=== PATIENT | male | born 1960 | race Caucasian/White ===

== ENCOUNTER 2024-07-31 11:06 | Outpatient (REF) | payer MEDICAID, SELFPAY ==
[2024-07-31 14:17] LABS: MANUAL DIFF FLAG NO
[2024-07-31 14:29] LABS: Basophils Absolute Auto 0.1 X10*3/uL (0.0-0.2); Basophils Percent Auto 0.7 % (0-2); Eosinophils Absolute Auto 0.3 X10*3/uL (0.0-0.4); Eosinophils Percent Auto 2.7 % (0-4); Hematocrit 45.1 % (42.0-52.0); Hemoglobin 14.6 g/dl (14.0-18.0); Imm Gran Abs Auto 0.04 X10*3/uL (0.00-0.03); Imm Gran Pct Auto 0.3 % (0.0-0.4); Lymphocytes Absolute Auto 1.1 X10*3/uL (1.2-4.9); Lymphocytes Percent Auto 9.1 % (20-40); Mean Corpuscular HGB Conc 32.4 g/dl (31.0-36.0); Mean Corpuscular Hemoglobin 29.7 pg (27.0-33.0); Mean Corpuscular Volume 91.9 fL (80.0-98.0); Mean Platelet Volume 10.6 fL (9.4-12.4); Monocytes Absolute Auto 0.8 X10*3/uL (0.1-1.2); Monocytes Percent Auto 6.7 % (2-11); Neutrophils Absolute Auto 9.8 x10*3/uL (2.0-8.3); Neutrophils Percent Auto 80.5 % (45-73); Platelet Count 408 X10*3/uL (160-400); Red Blood Count 4.91 X10*6/uL (4.60-5.80); Red Cell Distribution Width 15.8 % (11.0-16.0); White Blood Count 12.1 X10*3/uL (4.8-10.8)
[2024-07-31 14:54] LABS: Anion Gap 16 (12-20); Blood Urea Nitrogen 32 mg/dL (9-16); Calcium 9.4 mg/dL (8.4-10.2); Carbon Dioxide 23 mmol/L (22-29); Chloride 103 mmol/L (96-108); Estimated Glomerular Filt Rate 37; Glucose Random 70 mg/dL (60-115); Potassium 4.8 mmol/L (3.3-5.1); Sodium 137 mmol/L (135-145)
== END 2024-07-31 11:07 | disposition home or self-care (01) ==
LOC: HO.CHCLDS 11:06
PROVIDERS: Visit Provider Internal Medicine
DX: J18.9 Pneumonia, unspecified organism (principal)
CPT/HCPCS: 36415; 80048; 85025

== ENCOUNTER 2024-08-16 11:16 | Outpatient (AMB) | payer MEDICAID, SELFPAY ==
[2024-08-16 11:18] VITALS: BP 148/74; PULSE 91; O2SAT 95; BMI 29.5
--- NOTE | 2024-08-16 11:18 | HO.NEPHOV_ITS ---
Vital Signs 08/16/24 11:18 Height 5 ft 6 in Weight 183 lb BMI 29.5 BP 148/74 H Blood Pressure Location Lt brachial Position Sitting Pulse 91 Pulse Source Pulse Oximeter Pulse Oximetry (%) 95 Oxygen Delivery Method Room Air Intake Visit Reasons: ENP: CKD STG 3B/ Conf Voice Coach Required: No Accompanied by: girlfriend Allergies No Known Allergies Allergy (Verified 08/16/24 11:22) Medication List - Last Reconciled 08/16/24 by Daniel Mathew MD acetaminophen ER 650 mg PO Q8H albuterol 90 mcg/actuation mcg inhalation amlodipine 10 mg PO DAILY fluticasone furoate-vilanterol 100-25 mcg/dose (Breo Ellipta) 1 ea inhalation DAILY gabapentin 100 mg PO TID guaifenesin ER 1,200 mg PO BID ipratropium-albuterol 20-100 mcg/actuation (Combivent Respimat) 1 puff inhalation QID lisinopril 30 mg PO DAILY tiotropium bromide (Spiriva with HandiHaler) 1 cap inhalation DAILY HPI Comments Details: Abisai is a 64-year-old man with a history of hypertension referred for CKD. He has a history of meatal stenosis status post dilatation. Recently was hospitalized for pneumonia and treated with antibiotics. He was found to have chronic kidney disease serum creatinine was around 1.71.8 mg/dL. He has been referred for further evaluation of the same. Renal ultrasonogram and has been ordered but not yet done. Today he has no specific urinary complaints. No dysuria urgency increased frequency. He has low back pain he has been taking ibuprofen 600 mg 2 to 3 times a day on a regular basis for the last 1 month History of significant smoking. Used to smoke 1 pack per day currently cut down to 1 pack per week. He was COPD. COUNT INCLUDES [facility] Medical History (Updated 08/16/24 @ 11:33 by Daniel Mathew MD) Stricture of male urethra Sensory hearing loss Essential hypertension Chronic obstructive lung disease Family History (Updated 08/16/24 @ 11:21 by CAITLYN Pabon) Brother Kidney failure Physical Exam Vital Signs: Last Vital Signs Pulse 91 08/16/24 11:18 BP 148/74 H 08/16/24 11:18 Pulse Ox 95 08/16/24 11:18 Oxygen Delivery Method Room Air 08/16/24 11:18 BMI result Body Mass Index 29.5 Comfortable Neck supple no JVD. Lungs entry equal no rales. Heart S1-S2 heard no gallop or rub. Abdomen soft nontender. Neuro alert awake oriented. No asterixis. Extremities no edema. Results Reviewed Nephrology Results: Hgb 14.6 g/dl (14.0-18.0) 07/31/24 WBC 12.1 X10*3/uL (4.8-10.8) H 07/31/24 Plt Count 408 X10*3/uL (160-400) H 07/31/24 Sodium 137 mmol/L (135-145) 07/31/24 Potassium 4.8 mmol/L (3.3-5.1) 07/31/24 Chloride 103 mmol/L (96-108) 07/31/24 Carbon Dioxide 23 mmol/L (22-29) 07/31/24 BUN 32 mg/dL (9-16) H 07/31/24 Creatinine 1.85 mg/dL (0.5-1.4) H 07/31/24 Calcium 9.4 mg/dL (8.4-10.2) 07/31/24 Assessment & Plan Assessment & Plan (1) CKD (chronic kidney disease): Code(s): N18.9 - Chronic kidney disease, unspecified Category: Medical Plan Abisai has CKD in a setting of longstanding hypertension. He probably has hypertensive nephrosclerosis. He has been taking NSAIDs regularly therefore we could have a component of MARYAM due to the combination of NSAIDs and JANNIE inhibitors. With a history of meatal stenosis obstructive uropathy should be considered. Baseline in the recent urine studies I do not believe he has any active glomerular nephritis or interstitial disease. Nevertheless we will rule that out. History of hypertension Blood pressure is acceptable. Plan Renal ultrasonogram. Urine studies ordered. Maintain blood pressure less than 130/80 encouraged him to stay on low-sodium diet Increase p.o. fluid intake. He should avoid using NSAIDs and other nephrotoxic agents. Further workup will be based on the outcome of the above baseline investigations. Orders: Orders Total Protein Urine Random 4 Weeks N18.9 - Chronic kidney disease, unspecified UA and rflx microscopic 4 Weeks N18.9 - Chronic kidney disease, unspecified Parathyroid Hormone Intact 4 Weeks N18.9 - Chronic kidney disease, unspecified renal BI 08/16/24 I10 - Essential (primary) hypertension Creatinine Urine 4 Weeks N18.9 - Chronic kidney disease, unspecified Basic Metabolic Panel 4 Weeks N18.9 - Chronic kidney disease, unspecified Coding Level of Care Code New Pt Level 4 (41586) Diagnoses CKD (chronic kidney disease) N18.9
== END 2024-08-16 11:38 | disposition home or self-care (01) ==
PROVIDERS: PCP Internal Medicine; Referring Provider Internal Medicine; Visit Provider Internal Medicine Hypertension Specialist
DX: N18.9 Chronic kidney disease, unspecified (principal)
CPT/HCPCS: 99204

== ENCOUNTER → 2024-08-16 11:16 | Outpatient (BNVA) | payer MEDICAID, SELFPAY | PROVIDERS: PCP Internal Medicine; Referring Provider Internal Medicine; Visit Provider Internal Medicine Hypertension Specialist | DX: I12.9 Hypertensive chronic kidney disease with stage 1 through stage 4 chronic kidney disease, or unspecified chronic kidney disease (principal); N18.32 Chronic kidney disease, stage 3b | CPT/HCPCS: 99202 ==

== ENCOUNTER 2024-09-08 14:20 | Outpatient (REF) | payer MEDICAID, SELFPAY ==
--- NOTE | ~2024-09-08 | US_ITS ---
CLINICAL HISTORY: I10 - Essential (primary) hypertension; CKD Exam: Ultrasound of the kidneys. Comparison: None. Findings: Right kidney measures 11.7 x 5.9 x 4.0 cm in size. There are areas of cortical scarring of the right kidney. There is a prominent dromedary hump of the right kidney. No mass, hydronephrosis, or nephrolithiasis. Left kidney measures 10.0 x 3.5 x 1.9 cm in size. There are areas of cortical scarring of the left kidney as well. Several simple cysts within the left kidney measure up to 2.4 cm in size. Echogenic focus within the lower pole of the left kidney measures 11 x 6 x 6 mm in size. No hydronephrosis. Impression: 1. Cortical scarring of both kidneys. 2. Simple cysts within the left kidney. 3. Echogenic focus within the lower pole of the left kidney is likely a nonobstructing stone. This document has been electronically signed by: Oleg Bettencourt MD on 09/09/2024 08:00:28
== END 2024-09-08 14:21 | disposition home or self-care (01) ==
LOC: HO.US 14:20
PROVIDERS: PCP Internal Medicine; Visit Provider Internal Medicine Hypertension Specialist
DX: I10 Essential (primary) hypertension (principal)
CPT/HCPCS: 76775

== ENCOUNTER → 2024-09-08 14:22 | Outpatient (BNV) | payer MEDICAID, SELFPAY | PROVIDERS: PCP Internal Medicine; Visit Provider Radiology Diagnostic Radiology | DX: I12.9 Hypertensive chronic kidney disease with stage 1 through stage 4 chronic kidney disease, or unspecified chronic kidney disease (principal) | CPT/HCPCS: 76775 ==

== ENCOUNTER 2024-09-26 16:11 | Outpatient (REF) | payer MEDICAID, SELFPAY ==
--- OUTSIDE RECORDS SUMMARY | 2024-09-26 17:48 | XMS_ITS | Encounter Summary ---
Author Organization [employer] Address [address] [place] [address] [address] [place] [address] Care Team Providers Care Operator Coating Furnace Name Role Phone Maria E Hagen MD Primary Care Provider [phone]- [phone] Encounter Details Date Type Department Care Team ([facility] st Contact Info) Description 01/04/2023 Abstract [facility] MED & PEDS [address] [place] [address] Maricruz Interiano LPN Social History Tobacco Use Types Packs/Day Years Used Date Smoking Tobacco: Never Assessed Sex and Gender Information Value Date Recorded Sex Assigned at Male 07/06/2022 10:22 AM EDT Legal Sex Male 10:22 AM EDT Gender Identity Male 07/06/2022 10:22 AM EDT Sexual Orientation Straight 07/06/2022 10 :22 AM EDT documented as of this encounter Plan of Treatment Not on file documented as of this encounter Visit Diagnoses Not on filedocumented in this encounter Care Teams Operator Coating Furnace Relationship Specialty Start Date End Date Maria E Hagen MD [address] [place] [address] PCP - General Internal Medicine 10/17/13 documented as of this encounter
--- OUTSIDE RECORDS SUMMARY | 2024-09-26 17:48 | XMS_ITS | Encounter Summary ---
Author Organization [employer] Address [address] [facility] 7 [place] [address] Care Team Providers Care Contact Clerk Name Role Phone Maria E Hagen MD Primary Care Provider [phone]- [phone] Reason for Referral * Consultation (Routine) - Closed Specialty Diagnoses / Procedures Referred By Hanna jackson Referred To Contact Nephrology Diagnoses CKD stage 3b, GFR 30-44 ml/min ([facility]/HCC) Maria E Hagen MD [address] [place] [address] Phone: tel: fax: [facility] [address], [address] [place] [address] Phone: tel: fax: Referral ID Status Reason Start Date Expiration Date V isits Requested Visits Authorized [id number] Closed Specialty Services Required 07/31/2024 07/31/2025 1 1 * Imaging (Routine) - Authorized Specialty Diagnoses / Procedures Referred By Hanna jackson Referred To Contact Radiology Diagnoses CKD stage 3b, GFR 30-44 ml/min ([facility]/HCC) Procedures US RENAL BI Maria E Hagen MD [address] [place] [address] Phone: tel: fax: [address] Phone: tel: fax: Referral ID Status Reason Start Date Expiration Date V isits Requested Visits Authorized [id number] Authorized 07/31/2024 07/31/2025 1 1 Encounter Details Date Type Department Care Team (Late st Contact Info) Description 07/31/2024 Orders Only [facility] MED & PEDS [address] [place] [address] Maria E Hagen MD [address] [place] [address] CKD stage 3b, GFR 30-44 ml/min (CMS/HCC) (Primary Dx) Social History Tobacco Use Types Packs/Day Years Used Date Smoking Tobacco: Every Day Cigarettes 1 40 Smokeless Tobacco: Never Housing Stability Answer Date Recorded What is your housing situation today? I have tasha dumas 07/20/[address] you li ve. Do you have problems with any of the following? None of the above 07/20/2024 Food Insecurity Answer Date Recorded Within the past 12 months, y ou worried that your food would run out before you got money to buy more: Sometimes True 2023 Within the past 12 months,th e food you bought just didn't last and you didn't have enough money to get more: Sometimes True 07/20/2024 Transportation Answer Date Recorded In the past 12 months, has l ack of transportation kept you from medical appts, meetings, work or from getting things needed for daily living? Yes, it has kept me from medical appointments or getting medications. 07/20/2024 Utilities Answer Date Recorded In the past 12 months, has t he [employer], gas, oil or water [employer] threatened to shut off services in your home? No 07/20/2024 Depression Answer Date Recorded Patient Health Questionnaire-2 Score 0 03/01/2023 Internet Access Answer Date Recorded Internet Access Q1 Yes 07/20/2024 Internet Access Q2 Not on file 07/20/2024 Sex and Gender Information Value Date Recorded Sex Assigned at Male 07/06/2022 10:22 AM EDT Legal Sex Male 10:22 AM EDT Gender Identity Male 07/06/2022 10:22 AM EDT Sexual Orientation Straight 07/06/2022 10 :22 AM EDT documented as of this encounter Plan of Treatment Scheduled Orders Name Type Priority Associated Diagnoses Orde r Schedule US RENAL BI Imaging Routine CKD stage 3b, GFR 30-44 ml/min (CMS/HCC) Expected: 07/31/2024, Expires: 07/31/2025 Scheduled Referrals Name Type Priority Associated Diagnoses Order Schedule Referral to Nephrology Outpatient Referral Routine CKD stage 3b, GFR 30-44 ml/min (CMS/HCC) Expected: 07/31/2024 (Approximate), Expires: 07/31/2025 documented as of this encounter Visit Diagnoses Diagnosis CKD stage 3b, GFR 30-44 ml/min (CMS/HCC)- Primary documented in this encounter Care Teams Contact Clerk Relationship Specialty Start Date End Date Maria E Hagen MD [address] [place] [id number] PCP - General Internal Medicine 10/17/13 documented as of this encounter
--- OUTSIDE RECORDS SUMMARY | 2024-09-26 17:48 | XMS_ITS | Encounter Summary ---
Author Organization [facility] Address [address] [facility] 7t [place] [address] Care Team Providers Care Mold Tooler Name Role Phone Maria E Hagen MD Primary Care Provider [phone] Encounter Details Date Type Department Care Team (Late st Contact Info) Description 09/08/2024 Orders Only [facility] External Provider, [facility] Social History Tobacco Use Types Packs/Day Years [...] the past 12 months, has t he electric, gas, oil or water company threatened to shut off services in your [...] on file documented as of this encounter Procedures Procedure Name Priority Date/Time Associated Diagnosis Comments US RENAL BI Routine 09/09/2024 8:00 AM EST documented in this encounter Results * US RENAL BI (09/09/2024 8:00 AM EST) Anatomical Region Laterality Modality Abdomen Ultrasound 09/09/2024 8:00 AM EST Narrative 09/09/2024 8:02 AM EST ? [facility] ?[address] ?[place] [address] ? Ultrasound Report ? Signed ? Patient: De Young,Abisai ?MR#: [id number] ?? [id number] ? : 1960 ?Acct:[id number] ? Age/Sex: 64 / M ?ADM Date: 09/08/24 ? Loc: HO.US ? Attending Dr: Daniel Mathew MD ? Ordering Physician: Daniel Mathew MD ?? Date of Service: 09/08/24 ?? Procedure(s): US renal BI ?? Accession Number(s): [id number] ? cc: Daniel Mathew MD; Maria E Hagen MD ? CLINICAL HISTORY: I10 - Essential (primary) hypertension; CKD ? Exam: Ultrasound of the kidneys. ? Comparison: None. ? Findings: ? Right kidney measures 11.7 x 5.9 x 4.0 cm in size. There are areas of ?? cortical scarring of the right kidney. There is a prominent dromedary hump ?? of the right kidney. No mass, hydronephrosis, or nephrolithiasis. ? Left kidney measures 10.0 x 3.5 x 1.9 cm in size. There are areas of ?? cortical scarring of the left kidney as well. Several simple cysts within ?? the left kidney measure up to 2.4 cm in size. Echogenic focus within the ?? lower pole of the left kidney measures 11 x 6 x 6 mm in size. No ?? hydronephrosis. ? Impression: ? 1. Cortical scarring of both kidneys. ? 2. Simple cysts within the left kidney. ? 3. Echogenic focus within the lower pole of the left kidney is likely a ?? nonobstructing stone. ? This document has been electronically signed by: Oleg Bettencourt MD on ?? 09/09/2024 08:00:28 ? Dictated By: ?Oleg Bettencourt MD ? Signed By: ?<Electronically signed by Oleg Bettencourt MD in OV> ? 09/09/24 0802 ? DD/ 0800 ? TD/TT: 09/09/24 0800 ? Employee Benefits Insurance Agent: ? Procedure Note Donneymarinterpreter, Image - 09/09/2024 [place] [address] Ultrasound Report Signed Patient: Terrell Ryan#: [id number] : 1960cct:[id number] Age/Sex: 64 / MADM Date: 09/08/24 Loc: HO.US Attending Dr: Daniel Mathew MD Ordering Physician: Daniel Mathew MD Date of Service: 09/08/24 Procedure(s): US renal BI Accession Number(s): [id number] cc: Daniel Mathew MD; Maria E Hagen MD CLINICAL HISTORY: I10 - Essential (primary) hypertension; CKD Exam: Ultrasound of the kidneys. Comparison: None. Findings: Right kidney measures 11.7 x 5.9 x 4.0 cm in size. There are areas of cortical scarring of the right kidney. There is a prominent dromedary hump of the right kidney. No mass, hydronephrosis, or nephrolithiasis. Left kidney measures 10.0 x 3.5 x 1.9 cm in size. There are areas of cortical scarring of the left kidney as well. Several simple cysts within the left kidney measure up to 2.4 cm in size. Echogenic focus within the lower pole of the left kidney measures 11 x 6 x 6 mm in size. No hydronephrosis. Impression: 1. Cortical scarring of both kidneys. 2. Simple cysts within the left kidney. 3. Echogenic focus within the lower pole of the left kidney is likely a nonobstructing stone. This document has been electronically signed by: Oleg Bettencourt MD on 09/09/2024 08:00:28 Dictated By: Oleg Bettencourt MD Signed By: <Electronically signed by Oleg Bettencourt MD in OV> 09/09/24801 DD/ 9 TD/TT: 09/09/24799 Employee Benefits Insurance Agent: [facility] External Provider IMG US PROCEDURES Final Result documented in this encounter Visit Diagnoses Not on filedocumented in this encounter Care Teams Mold Tooler Relationship Specialty Start Date End Date Maria E Hagen MD [address] [place] [address] PCP - General Internal Medicine 10/17/13 documented as of this encounter
--- OUTSIDE RECORDS SUMMARY | 2024-09-26 17:48 | XMS_ITS | Encounter Summary ---
Author Organization [employer] Address [address] [place] [address] [address] [place] [address] Care Team Providers Care Manager Business Development Hospice Name Role Phone Maria E Hagen MD Primary Care Provider [phone]- [phone] Reason for Visit * Reason Comments Med Refill Encounter Details Date Type Department Care Team ([facility] st Contact Info) Description 01/02/2023 Refill [facility] MED & PEDS [address] [place] [address] Maria E Hagen MD [address] [place] [address] Social History Tobacco Use Types Packs/Day Years [...] on filedocumented in this encounter Care Teams Manager Business Development Hospice Relationship Specialty Start Date End Date Maria E Hagen MD [address] [place] [address] PCP - General Internal Medicine 10/17/13 documented as of this encounter
--- OUTSIDE RECORDS SUMMARY | 2024-09-26 17:48 | XMS_ITS | Encounter Summary ---
Author Organization [employer] Address [address] [place] [address] [address] [place] [address] Care Team Providers Care Lay Midwife Name Role Phone Maria E Hagen MD Primary Care Provider [phone]- [phone] Reason for Visit * Reason Comments Med Refill Encounter Details Date Type Department Care Team ([facility] st Contact Info) Description 01/31/[address] [facility] MED & PEDS [address] [place], [place] [phone] Luisa Weems MD [address] [place], [place] [phone] Mixed simple and mucopurulent chronic bronchitis (CMS/HCC) Social History Tobacco Use Types Packs/Day Years [...] as of this encounter Visit Diagnoses Diagnosis Mixed simple and mucopurulent chronic bronchitis (CMS/HCC) Other chronic bronchitis documented in this encounter Care Teams Lay Midwife Relationship Specialty Start Date End Date Maria E Hagen MD [address] [place] [address] PCP - General Internal Medicine 10/17/13 documented as of this encounter
--- OUTSIDE RECORDS SUMMARY | 2024-09-26 17:48 | XMS_ITS | Encounter Summary ---
Author Organization [employer] Address [address] [facility] [address] [place] [address] Care Team Providers Care Coconut Cooker Name Role Phone Maria E Hagen MD Primary Care Provider +1- [phone] Encounter Details Date Type Department Care Team (Latest Contact Info) Description 09/26/2024 Travel Social History Tobacco Use Types Packs/Day Years Used Date Smoking Tobacco: Every Day Cigarettes 1 40 Smokeless Tobacco: Never Depression Answer Date Recorded Patient Health Questionnaire-9 Score 1 09/26/2024 Patient Health Questionnaire-9 Score 1 09/26/2024 Last PHQ-9: Questionnaire Data Not on file 0 09/26/2024 Housing Stability Answer Date Recorded What is [...] Date Recorded Patient Health Questionnaire-2 Score 0 09/26/2024 Internet Access Answer Date Recorded Internet Access [...] Diagnoses Not on filedocumented in this encounter Additional Health Concerns Assessment Noted Time PHQ-9 Depression Total Score: 1 09/26/19 25 4:08 PM EST documented as of this encounter Care Teams Coconut Cooker Relationship Specialty Start Date End Date Maria E Hagen MD [address] [place] [address] PCP - General Internal Medicine 10/17/13 documented as of this encounter
--- OUTSIDE RECORDS SUMMARY | 2024-09-26 17:48 | XMS_ITS | Clinical Summary ---
Author Organization [employer] Address [address] [facility] 7t [place] [address] Care Team Providers Care Field Technician Name Role Phone Maria E Hagen MD Primary Care Provider +1- [phone] Allergies No known active allergies Medications acetaminophen (Tylenol 8 Hour) 650 MG ER tablet Take 1 tablet by mouth every 8 (eight) hours. 07/21/20 18 Active Fluticasone Furoate-Vilante rol (Breo Ellipta) 100-25 MCG/ACT aerosol powder Inhale 1 puff at bed time. 12/09/19 22 Active ipratropium-alb uterol (Combivent Respimat) 20-100 MCG/ACT inhalerIndicati ons:Mixed simple and mucopurulent chronic bronchitis (CMS/HCC) Inhale 1 puff in the morning, at noon, in the evening, and at bedtime. 4 g 11 05/03/20 24 Active guaiFENesin (Mucinex) 600 MG 12 hr tabletIndicatio ns:Mixed simple and mucopurulent chronic bronchitis (CMS/HCC) Take 2 tablets (1,200 mg) by mouth 2 times daily. Do not crush, chew, or split. 120 tablet 11 05/03/20 24 025 Active amLODIPine (Norvasc) 10 MG tabletIndicatio ns:Essential hypertension Take 1 tablet (10 mg) by mouth Once per day. 90 tablet 3 06/20/20 24 025 Active gabapentin (Neurontin) 100 MG capsule Take 100 mg by mouth 3 times daily. 07/18/20 24 Active cetirizine (ZyrTEC) 10 MG tabletIndicatio ns:Seasonal allergies TAKE 1 TABLET BY MOUTH IN THE MORNING 90 tablet 1 08/16/20 24 Active lisinopril 30 MG tabletIndicatio ns:Essential hypertension Take 1 tablet (30 mg) by mouth Once per day. 90 tablet 3 09/26/19 25 Active albuterol (Ventolin HFA) 108 (90 Base) MCG/ACT inhalerIndicati ons:Mixed simple and mucopurulent chronic bronchitis (CMS/HCC) Inhale 2 puffs every 6 (six) hours if needed for wheezing. 18 g 5 09/26/19 25 Active Ventolin HFA 108 (90 Base) MCG/ACT inhalerIndicati ons:Simple chronic bronchitis (CMS/HCC),Mixed simple and mucopurulent chronic bronchitis (CMS/HCC) INHALE 2 PUFFS BY MOUTH EVERY 6 HOURS NEEDED FOR WHEEZING OR SHORTNESS OF BREATH 18 g 5 02/22/20 24 025 Discontinued(R eorder (will not trigger notification to Pharmacy)) lisinopril 30 MG tabletIndicatio ns:Essential hypertension Take 1 tablet (30 mg) by mouth Once per day. 90 tablet 3 06/20/20 24 025 Discontinued(R eorder (will not trigger notification to Pharmacy)) tiotropium (Spiriva) 18 MCG inhalation capsuleIndicati ons:Simple chronic bronchitis (CMS/HCC) INHALE THE CONTENTS OF 1 CAPSULE VIA INHALATION DEVICE EVERY DAY 30 capsule 11 06/20/20 24 025 Discontinued(T herapy completed) Active Problems Problem Noted Date Diagnosed Date CKD stage 3b, GFR 30-44 ml/min 07/31/2024 Stricture of male urethra 03/01/2023 Chronic obstructive lung disease 06/06/2014 Assessment & Plan (09/26/2024 4:40 PM EST): Lung sound diminished in all quadrant Tripod sitting Albuterol refilled Start on [facility] Patient education on smoking and COPD, and smoking cessation Keep all appointments wit your medical providers Take all medications as prescribed Stop smoking Essential hypertension 06/06/2014 Assessment & Plan (09/26/2024 4:44 PM EST): BP Readings from Last 1 Encounters: 09/26/24 138/86 Lisinopril refill Take your meds as prescribed. Do not change or discontinue current prescriptions without consulting health care provider Aerobic exercise daily at 30 mins daily to reduce BP and increase as tolerated. Eat heart healthy diet such as DASH. Low-sodium diet less than 2g/day to reduce BP and prevent ASCVD. Monitor and record your home BP 1-2 x day with goal of <140/90. Bring your log to the next visit Seek immediate medical attention for chest pain, palpitations, SOB, syncope, or sudden changes in mental status. Sensory hearing loss 06/06/2014 Encounters Date Type Department Care Team Description 09/26/2024 3:15 PM EST Office Visit [facility] [address] [place] [address] Maria E Hagen MD CKD stage 3b, GFR 30-44 ml/min (CMS/HCC) (Primary Dx); Essential hypertension; Mixed simple and mucopurulent chronic bronchitis (CMS/HCC) 09/26/2024 Travel 09/08/2024 Orders Only [facility] External Provider, [facility] 08/16/2024 Refill [facility] [address] [place] [address] Maria E Hagen MD Seasonal allergies 08/09/2024 Telephone [facility] [address] [place] [address] [phone] Maria E Hagen MD 08/01/2024 Telephone [facility] [address] [place] [address] Nancy Villanueva, RN Results 07/31/2024 10:15 AM EST Office Visit [facility] [address] [place] [address] Maria E Hagen MD Pneumonia of right lower lobe due to infectious organism (Primary Dx); Hyperkalemia; Essential hypertension 07/31/2024 Orders Only [facility] [address] [place] [address] Maria E Hagen MD CKD stage 3b, GFR 30-44 ml/min (CMS/HCC) (Primary Dx) 07/31/2024 Travel 07/20/2024 Patient Outreach [facility] [address] [place] [address] Maria E Hagen MD Care Coordination (CHW outreach for SDOH PT-1 and food needs-LVM ) 07/20/2024 Telephone [facility] [address] [place] [address] Maria E Hagen MD Transition Of Care (Tcm) (HDF- scheduled and SDOH screening positive and Tobacco screening positive) 07/20/2024 Patient Outreach [facility] [address] [place] [address] Maria E Hagen MD Transition Of Care (Tcm) (HDF- Unscheduled SECOND LVM) 07/19/2024 Patient Outreach [facility] [address] [place] [address] Maria E Hagen MD Transition Of Care (Tcm) (HDF- Unscheduled LVM on daughter's # and patient's number is not in service.) from Last 3 Months Immunizations Name Administration Dates Next Due Influenza injectable quadriv alent IIV4 with preservative 07/21/2018,05/28/2016 Influenza, IIV3, injectable 06/06/2014 Influenza, seasonal, injectable, preservative fr ee 06/20/2024 Tdap 06/20/2024 Family History Medical History Relation Name Comments Diabetes type II Brother Hypertension Brother Diabetes Mother Stroke Mother Relation Name Status Comments Brother Mother Social History Tobacco Use Types Packs/Day Years Used Date Smoking Tobacco: Every Day Cigarettes 1 40 Smokeless Tobacco: Never Tobacco Cessation:Ready to Q uit: Not Asked; Counseling Given: Not Answered Depression Answer Date Recorded Patient Health Questionnaire-9 [...] Orientation Straight 07/06/2022 10 :22 AM EDT Last Filed Vital Signs Vital Sign Reading Time Taken Comments Blood Pressure 138/86 09/26/2024 3:20 PM EST Pulse 78 09/26/2024 3:20 PM EST Temperature 36.3 ??C (97.4 ??F) 09/26/2024 3:20 PM ES T Respiratory Rate 18 09/26/2024 3:20 PM EST Oxygen Saturation 97% 09/26/2024 3:20 PM EST Inhaled Oxygen Concentration - - Weight 83.7 kg (184 lb 9.6 oz) 09/26/2024 3:20 P M EST Height 167.6 cm (5' 6 ) 09/26/2024 3:20 PM EST Body Mass Index 29.8 09/26/2024 3:20 PM EST Plan of Treatment Health Maintenance Due Date Last Done Comments CT Colonography 1960 Colonoscopy 1960 Colorectal Cancer Screening 1960 FIT DNA/Cologuard 1962 FIT 1962 FOBT 1960 HIV Screening 1960 Lipid Panel 1962 Sigmoidoscopy 1962 Pneumococcal Vaccine: Pediatrics (0 to 5 Years) and At-Risk Patients (6 to 64 Years) (1 of 2 - PCV) 1968 Hepatitis C Screening 1980 Lung Cancer Screening 2012 Zoster Vaccines (1 of 2) 2012 RSV Patients and Patients Aged 60 years or older (1 - Risk 60-74 years 1-dose series) 2022 COVID-19 Vaccine ( - season) 2025 Postponed from 05/07/2024 (Patient Refused) SDOH Screening 07/20/2025 07/20/2024 Tobacco Screening 07/31/2025 07/31/2024 Alcohol/Substance Use Screening 09/26/2025 09/26/2024 Depression Screening 09/26/2025 09/26/2024, 09/26/19 DTaP/Tdap/Td Vaccines (2 - Td or Tdap) 06/20/2034 06/20/2024 Influenza Vaccine Completed 06/20/2024, , 05/28/2016, Additional history exists HIB Vaccines Aged Out No longer eligi ble based on patient's age to complete this topic HPV Vaccines Aged Out No longer eligi ble based on patient's age to complete this topic Hepatitis A Vaccines Aged Out No long er eligible based on patient's age to complete this topic Hepatitis B Vaccines Aged Out No long er eligible based on patient's age to complete this topic IPV Vaccines Aged Out No longer eligi ble based on patient's age to complete this topic Meningococcal Vaccine Aged Out No flor josue eligible based on patient's age to complete this topic RSV under 20 months Aged Out No longe r eligible based on patient's age to complete this topic Rotavirus Vaccines Aged Out No longer eligible based on patient's age to complete this topic Procedures Procedure Name Priority Date/Time Associated Diagnosis Comments US RENAL BI Routine 09/09/2024 8:00 AM EST CBC WITH AUTO DIFFERENTIAL Routine 07/31/2024 11:09 AM EST Pneumonia of right lower lobe due to infectious organism BASIC METABOLIC PANEL Routine 07/31/2024 11:09 AM EST Pneumonia of right lower lobe due to infectious organism from Last 3 Months Results * US RENAL BI (09/09/2024 8:00 AM EST) Anatomical Region Laterality Modality Abdomen Ultrasound 09/09/2024 8:00 AM EST Narrative 09/09/2024 8:02 AM EST ? [facility] ?[address] ?[place] [address] ? Ultrasound Report ? Signed ? Patient: Shelby,Abisai ?MR#: [id number] ?? [id number] ? : 1960 ?Acct:[id number] ? Age/Sex: 64 / M ?ADM Date: 09/08/24 ? Loc: HO.US ? Attending Dr: Daniel Mathew MD ? Ordering Physician: Daniel Mathew MD ?? Date of Service: 09/08/24 ?? Procedure(s): US renal BI ?? Accession Number(s): [id number] ? cc: Daniel Mathew MD; Maria E [...] in OV> ? 09/09/24 0802 ? DD/ 08 ? TD/TT: 09/09/24 08 ? Architectural Associate: ? Procedure Note Luis Carlos, Image - 09/09/[address] [address] Ultrasound Report Signed Patient: Terrell Ryan#: [id number] : [id number]:[id number] Age/Sex: 64 / MADM Date: 09/08/24 Loc: HO.US Attending Dr: Daniel Mathew MD Ordering Physician: Daniel Mathew MD Date of Service: 09/08/24 Procedure(s): US renal BI Accession Number(s): [id number] cc: Daniel Mathew MD; Maria E Hagen [...] MD in OV> 09/09/24801 DD/ 9 TD/TT: 09/09/24 08 Architectural Associate: us [facility] External Provider IMG US PROCEDURES Final Result * (ABNORMAL) CBC auto differential (07/31/2024 11:09 AM EST) White Blood Count 12.1(H) 4.8 - 10.8 X10*3/uL [facility] Red Blood Count 4.91 4.60 - 5.80 X10*6/uL [facility] Hemoglobin 14.6 14.0 - 18.0 g/dl [facility] Hematocrit 45.1 42.0 - 52.0 % [facility] Mean Corpuscular Volume 91.9 80.0 - 98.0 fL [facility] Mean Corpuscular Hemoglobin 29.7 27.0 - 33.0 pg [facility] Mean Corpuscular HGB Conc 32.4 31.0 - 36.0 g/dl [facility] Red Cell Distribution Width 15.8 11.0 - 16.0 % [facility] Platelet Count 408(H) 160 - 400 X10*3/uL [facility] Mean Platelet Volume 10.6 9.4 - 12.4 fL [facility] Neutrophils Percent Auto 80.5(H) 45 - 73 % [facility] Imm Gran Pct Auto 0.3 0.0 - 0.4 % [facility] Lymphocytes Percent Auto 9.1(L) 20 - 40 % [facility] Monocytes Percent Auto 6.7 2 - 11 % [facility] Eosinophils Percent Auto 2.7 0 - 4 % [facility] Basophils Percent Auto 0.7 0 - 2 % [facility] NRBC Pct Auto 0.0 0.0 - 0.2 /100WBC [facility] Neutrophils Absolute Auto 9.8(H) 2.0 - 8.3 x10*3/uL [facility] Imm Gran Abs Auto 0.04(H) 0.00 - 0.03 X10*3/uL [facility] Lymphocytes Absolute Auto 1.1(L) 1.2 - 4.9 X10*3/uL [facility] Monocytes Absolute Auto 0.8 0.1 - 1.2 X10*3/uL [facility] Eosinophils Absolute Auto 0.3 0.0 - 0.4 X10*3/uL [facility] Basophils Absolute Auto 0.1 0.0 - 0.2 X10*3/uL [facility] NRBC Abs Auto 0.000 0.0 - 0.012 X10*3/uL [facility] Blood Venous blood specimen / Unknown 07/31/2024 11:09 AM EST 07/31/2024 2:13 PM EST us Maria E Hagen MD LAB BLOOD ORDERABLES Final Result [facility] [address] [place] [phone] * (ABNORMAL) Basic Metabolic Panel (07/31/2024 11:09 AM EST) Sodium 137 135 - 145 mmol/L [facility] Potassium 4.8 3.3 - 5.1 mmol/L [facility] Chloride 103 96 - 108 mmol/L [facility] Carbon Dioxide 23 22 - 29 mmol/L [facility] Anion Gap 16 12 - 20 [facility] Urea Nitrogen (BUN) 32(H) 9 - 16 mg/dL [facility] Creatinine, Serum 1.85(H) 0.5 - 1.4 mg/dL [facility] Estimated Glomerular Filt Rate 37 [facility] Comment:Chronic Kidney Disea se: Estimated GFR < 60 mL/min/[id number] Kidney Disease: Estimated GFR < 15 mL/min/1.73m2 Glucose 70 60 - 115 mg/dL [facility] Calcium 9.4 8.4 - 10.2 mg/dL [facility] Blood Venous blood specimen / Unknown 07/31/2024 11:09 AM EST 07/31/2024 2:13 PM EST us Maria E Hagen MD LAB BLOOD ORDERABLES Final Result [facility] [address] [place] [address] [phone] from Last 3 Months Insurance C3 Care Teams Field Technician Relationship Specialty Start Date End Date Maria E Hagen MD [address] [place] [phone] PCP - General Internal Medicine 10/17/13
--- OUTSIDE RECORDS SUMMARY | 2024-09-26 17:48 | XMS_ITS | Encounter Summary ---
Author Organization [employer] Address [address] [facility] 7t [place] [address] Care Team Providers Care Power Saw Mechanic Name Role Phone Maria E Hagen MD Primary Care Provider +1- [phone] Encounter Details Date Type Department Care Team ([facility] st Contact Info) Description 09/26/2024 3:15 PM EST Office Visit [facility] [address] [place], [place] [phone] Maria E Hagen MD [address] [place], [place] [phone] CKD stage 3b, GFR 30-44 ml/min (CMS/HCC) [...] AM EDT documented as of this encounter Last Filed Vital Signs Vital Sign Reading [...] Mass Index 29.8 09/26/2024 3:20 PM EST documented in this encounter Miscellaneous Notes * Assessment & Plan Note - REANNA Irwin - 09/26/2024 4:42 PM ESTAssociated Problem(s): Essential hypertension BP Readings from Last 1 Encounters: 09/26/24 138/86 Lisinopril refill Take your meds as prescribed. Do not change or discontinue current prescriptions without consultinghealth care provider Aerobic exercise daily at 30 [...] syncope, or sudden changes in mental status. * Assessment & Plan Note - REANNA Irwin - 09/26/2024 4:40 PM ESTAssociated Problem(s): Chronic obstructive lung disease (CMS/HCC) Lung sound diminished in all quadrant Tripod sitting Al[facility]erol [facility] Patient education on smoking and COPD, and smoking cessation Keep all appointments wit your medical providers Take all medications as prescribed Stop smoking documented in this encounter Plan of Treatment Scheduled Orders Name Type Priority Associated Diagnoses Orde r Schedule Albumin, Random Urine W/Creatinine Lab Routine CKD stage 3b, GFR 30-44 ml/min (CMS/HCC) Expected: 09/26/2024 (Approximate), Expires: 09/26/2025 Urinalysis Complete Lab Routine CKD stage 3b, GFR 30-44 ml/min (CMS/HCC) Expected: 09/26/2024, Expires: 09/26/2025 BUN (Blood Urea Nitrogen) Lab Routine CKD stage 3b, GFR 30-44 ml/min (CMS/HCC) Expected: 09/26/2024 (Approximate), Expires: 09/26/2025 Creatinine, Serum Lab Routine CKD stage 3b, GFR 30-44 ml/min (CMS/HCC) Expected: 09/26/2024, Expires: 09/26/2025 documented as of this encounter Visit Diagnoses Diagnosis CKD stage 3b, GFR 30-44 ml/min (CMS/HCC)- Primary Essential hypertension Unspecified essential hypertension Mixed simple and mucopurulent chronic bronchitis (CMS/HCC) Other chronic bronchitis documented in this encounter Additional Health Concerns Assessment Noted Time PHQ-9 Depression Total Score: 1 09/26/19 25 4:08 PM EST documented as of this encounter Care Teams Power Saw Mechanic Relationship Specialty Start Date End Date Maria E Hagen MD [address] [place] [phone] PCP - General Internal Medicine 10/17/13 documented as of this encounter
--- OUTSIDE RECORDS SUMMARY | 2024-09-26 17:48 | XMS_ITS | Encounter Summary ---
Author Organization [employer] Address [address] [place] [address] [address] [place] [address] Care Team Providers Care Lens Grinding Machine Operator Name Role Phone Maria E Hagen MD Primary Care Provider [phone]- [phone] Reason for Visit * Reason Comments Med Refill Encounter Details Date Type Department Care Team ([facility] st Contact Info) Description 01/31/2023 Refill [facility] [address] [place] [address] Maria E Hagen MD [address] [place] [address] Social History Tobacco Use Types Packs/Day Years [...] on filedocumented in this encounter Care Teams Lens Grinding Machine Operator Relationship Specialty Start Date End Date Maria E Hagen MD [address] [place] [address] PCP - General Internal Medicine 10/17/13 documented as of this encounter
[2024-09-26 17:51] LABS: Appearance Urine Clear; Color Urine Yellow; Glucose Urine UA Negative (Negative); Leukocyte Esterase Urine Negative (Negative); Nitrite Urine Negative (Negative); PH 5.5 (5.0-9.0); Urine Blood Negative (Negative); Urine Ketones Negative (Negative); Urine Protein Negative (Neg-Trace)
[2024-09-26 17:54] LABS: Bacteria Urine None Seen (None Seen); Hyaline Casts Urine 0-2 /LPF (0-2); RBC Urine 0-2 /HPF (0-2); Squamous Epithelial Cell Urine 0-2 /HPF (0-2); WBC Urine 0-5 /HPF (0-5)
[2024-09-26 18:08] LABS: Blood Urea Nitrogen 38 mg/dL (9-16); Estimated Glomerular Filt Rate 40
[2024-09-26 18:09] LABS: Creatinine Urine 49.31 mg/dL; Microalbum/Creatinine Ratio Ur 107.4 ug/mg cr (<30)
== END 2024-09-26 16:12 | disposition home or self-care (01) ==
LOC: HO.CHCLDS 16:11
PROVIDERS: Visit Provider Internal Medicine
DX: N18.32 Chronic kidney disease, stage 3b (principal)
CPT/HCPCS: 36415; 81001; 82043; 82565; 82570; 84520

== ENCOUNTER 2024-11-01 10:36 | Outpatient (REF) | payer MEDICAID, SELFPAY ==
--- OUTSIDE RECORDS SUMMARY | 2024-11-01 14:03 | XMS_ITS | Encounter Summary ---
Author Organization [employer] Address [address] [place] [address] [place] [address] Care Team Providers Care Cream Cheese Maker Name Role Phone Maria E Hagen MD Primary Care Provider +1- [phone] Reason for Visit * Reason Comments Med Refill Encounter Details Date Type Department Care Team ([facility] st Contact Info) Description 01/02/2023 Refill [facility] CHC MED & PEDS [address] [place] [address] Maria E Hagen MD 505 [place] [address] Social History Tobacco Use Types Packs/Day Years [...] on filedocumented in this encounter Care Teams Cream Cheese Maker Relationship Specialty Start Date End Date Maria E Hagen MD 505 [place] [address] PCP - General Internal Medicine 10/17/13 documented as of this encounter
--- OUTSIDE RECORDS SUMMARY | 2024-11-01 14:03 | XMS_ITS | Encounter Summary ---
Author Organization [employer] Address 75 [facility] 7 [place] [address] Care Team Providers Care Commercial Engineer Name Role Phone Maria E Hagen MD Primary Care Provider +1- [phone] Reason for Visit * Reason Comments Med Refill Encounter Details Date Type Department Care Team ([facility] st Contact Info) Description 10/10/2024 Refill C [facility] MED & PEDS [address] [place], [place] [phone] Maria E Hagen MD 505 [place] [address] Essential hypertension Social History Tobacco Use Types [...] documented as of this encounter Care Teams Commercial Engineer Relationship Specialty Start Date End Date Maria E Hagen MD [address] [place] [phone] PCP - General Internal Medicine 10/17/13 documented as of this encounter
--- OUTSIDE RECORDS SUMMARY | 2024-11-01 14:03 | XMS_ITS | Clinical Summary ---
Author Organization [employer] Address 75 [facility] 7t [place] [address] Care Team Providers Care Tie Tamper Name Role Phone Maria E Hagen MD Primary Care Provider +1- [phone] Allergies No known active allergies Medications acetaminophen [...] quadrant Tripod sitting Albuterol refilled Start on [facility] Patient education on smoking and COPD, [...] Type Department Care Team Description 10/10/2024 Refill [facility] MED & PEDS [address] [place] [address] Maria E Hagen MD Essential hypertension 09/26/2024 3:15 PM EST Office Visit [facility] MED & PEDS [address] [place] [address] Maria E Hagen MD CKD stage 3b, GFR 30-44 ml/min (CMS/HCC) (Primary Dx); Essential hypertension; Mixed simple and mucopurulent chronic bronchitis (CMS/HCC) 09/26/2024 Travel 09/08/2024 Orders Only [facility] External Provider, [facility] 08/16/2024 Refill [facility] MED & PEDS [address] [place] [address] Maria E Hagen MD Seasonal allergies 08/09/2024 Telephone [place] [facility] [address] [place], [place] [phone] Maria E Hagen MD 08/01/2024 Telephone [facility] MED & PEDS [address] [place] [address] Nancy Villanueva, YOHANNES Results from Last 3 [...] EST CKD stage 3b, GFR 30-44 ml/min ([facility]) ALBUMIN, RANDOM URINE W/CREATININE Routine 09/26/2024 4:20 [...] 4:20 PM EST) Creatinine, Urine 49.31 mg/dL [facility] Microalbumin Urine 53.0 mg/L [facility] Microalbum Creatinine Ratio Ur 107.4(H) <30 ug/mg cr [facility] Comment:Albumin/Creatinine R atio Reference Ranges: Normal: < 30 ug/mg creatinine Microalbuminuria: 30 - 300 ug/mg creatinineClinical Albuminuria: > 300 ug/mg creatinine Urine (Urine, Random) 09/26/2024 4:20 PM EST 09/26/2024 5:30 PM EST us Maria E Hagen MD LAB URINE ORDERABLES Final Result [facility] [address] [place] [phone] * Urinalysis Complete (09/26/2024 4:20 PM EST) Color Urine Yellow [facility] Appearance Urine Clear [facility] PH 5.5 5.0 - 9.0 [facility] Glucose Urine UA Negative Negative mg/dL [facility] Urine Blood Negative Negative [facility] Specific [place] - Urine 1.010 1.005 - 1.025 [facility] Urine Protein Negative Neg-Trace mg/dL [facility] Urine Ketones Negative Negative mg/dL [facility] Nitrite Urine Negative Negative [facility] Leukocyte Esterase Urine Negative Negative [facility] RBC Urine 0-2 0 - 2 /HPF [facility] Urine WBC 0-5 0 - 5 /HPF [facility] Urine Squamous Epithelial Cell 0-2 0 - 2 /HPF [facility] Urine Bacteria None Seen None Seen [facility] Hyaline Casts, Urine 0-2 0 - 2 /LPF [facility] Urine (Urine, Random) 09/26/2024 4:20 PM EST 09/26/2024 5:30 PM EST us Maria E Hagen MD LAB URINE ORDERABLES Final Result Performing Organization Address [facility]/ZIP Co de Phone Number [facility] [address] [place] [phone] * (ABNORMAL) Creatinine, Serum (09/26/2024 4:13 PM EST) Creatinine, Serum 1.73(H) 0.5 - 1.4 mg/dL [facility] Estimated Glomerular Filt Rate 40 [facility] Comment:Chronic Kidney Disea se: Estimated GFR < 60 mL/min/[id number] Kidney Disease: Estimated GFR < 15 mL/min/1.73m2 Blood Venous blood specimen / Unknown 09/26/2024 4:13 PM EST 09/26/2024 5:31 PM EST us Maria E Hagen MD LAB BLOOD ORDERABLES Final Result Performing Organization Address City/[facility]/ZIP Co de Phone Number [facility] [address] [place] [phone] * (ABNORMAL) BUN (Blood Urea Nitrogen) (09/26/2024 4:13 PM EST) Urea Nitrogen (BUN) 38(H) 9 - 16 mg/dL [facility] Blood Venous blood specimen / Unknown 09/26/2024 4:13 PM EST 09/26/2024 5:31 PM EST us Maria E Hagen MD LAB BLOOD ORDERABLES Final Result [facility] [address] [place] [address] [phone] * US RENAL BI (09/09/2024 8:00 AM EST) Anatomical Region Laterality Modality Abdomen Ultrasound 09/09/2024 8:00 AM EST Narrative 09/09/2024 8:02 AM EST ? [facility] ?[address] ?[place] [address] ? Ultrasound Report ? Signed ? Patient: Emily,Abisai ?MR#: [id number] ?? 394 ? : 1960 ?Acct:[id number] ? Age/Sex: 64 / M ?ADM Date: 09/08/24 ? Loc: HO.US ? Attending Dr: Daniel Mathew MD ? Ordering Physician: Daniel Mathew MD ?? Date of Service: 09/08/24 ?? Procedure(s): US renal BI ?? Accession Number(s): [id number] ? cc: Daniel Mathew MD; Maria E [...] DD/ 0800 ? TD/TT: 09/09/24 0800 ? Animal Care Worker: ? Procedure Note Donjosephter, Image - 09/09/2024 [place] [address] Ultrasound Report Signed Patient: Terrell Ryan#: [id number] 394 : 2Acct:[id number] Age/Sex: 64 / MADM Date: 09/08/24 Loc: HO.US Attending Dr: Daniel Mathew MD Ordering Physician: Daniel Mathew MD Date of Service: 09/08/24 Procedure(s): US renal BI Accession Number(s): [id number] cc: Daniel Mathew MD; Maria E Hagen [...] in OV> 09/09/24801 DD/ 9 TD/TT: 09/09/24799 Animal Care Worker: [facility] External Provider [facility] PROCEDURES Final Result from Last 3 Months Insurance C3 Care Teams Tie Tamper Relationship Specialty Start Date End Date Maria E Hagen MD [address] [place] [phone] PCP - General Internal Medicine 10/17/13
--- OUTSIDE RECORDS SUMMARY | 2024-11-01 14:03 | XMS_ITS | Encounter Summary ---
Author Organization [employer] Address [address] [place] [address] 7 [place] [address] Care Team Providers Care Clerical Office Name Role Phone Maria E Hagen MD Primary Care Provider +1- [phone] Encounter Details Date Type Department Care Team ([facility] st Contact Info) Description 01/04/2023 Abstract [facility] MED & PEDS [address] [place] [address] Maricruz Interiano LPN Social History Tobacco Use [...] on filedocumented in this encounter Care Teams Clerical Office Relationship Specialty Start Date End Date Maria E Hagen MD [address] [place] [address] PCP - General Internal Medicine 10/17/13 documented as of this encounter
--- OUTSIDE RECORDS SUMMARY | 2024-11-01 14:03 | XMS_ITS | Encounter Summary ---
Author Organization [email or web address] Address [address] [facility] 7 [place] [address] Care Team Providers Care Fishing Vessel Operator Name Role Phone Maria E Hagen MD Primary Care Provider +1- [phone] Reason for Referral * Consultation (Routine) - Closed Specialty Diagnoses / Procedures Referred By Hanna jackson Referred To Contact Nephrology Diagnoses CKD stage 3b, GFR 30-44 ml/min ([facility]/HCC) Maria E Hagen MD [address] [place] [address] Phone: tel: fax: [facility] [address], [address] [place] [address] Phone: tel: fax: Referral ID Status Reason Start Date Expiration Date V isits Requested Visits Authorized [id number] Closed Specialty Services Required 07/31/2024 07/31/2025 1 1 * Imaging (Routine) - Closed Specialty Diagnoses / Procedures Referred By Hanna jackson Referred To Contact Radiology Diagnoses CKD stage 3b, GFR 30-44 ml/min ([facility]/HCC) Procedures US RENAL BI Maria E Hagen MD [address] [place] [address] Phone: tel: fax: [address] Phone: tel: fax: Referral ID Status Reason Start Date Expiration Date Visits Re quested Visits Authorized [id number] Closed 07/31/2024 07/31/2025 1 1 Encounter Details Date Type Department Care Team (Late st Contact Info) Description 07/31/2024 Orders Only [facility] MED & PEDS [address] [place] [address] Maria E Hagen MD [address] [place] [address] CKD stage 3b, GFR 30-44 ml/min (CMS/HCC) [...] the past 12 months, has t he [employer] gas, oil or water [employer] threatened to shut off services in your [...] Primary documented in this encounter Care Teams Fishing Vessel Operator Relationship Specialty Start Date End Date Maria E Hagen MD [address] [place] [phone] PCP - General Internal Medicine 10/17/13 documented as of this encounter
--- OUTSIDE RECORDS SUMMARY | 2024-11-01 14:03 | XMS_ITS | Encounter Summary ---
Author Organization [employer] Address [address] [place] [address] [place] [address] Care Team Providers Care Water Quality Control Engineer Name Role Phone Maria E Hagen MD Primary Care Provider +1- [phone] Reason for Visit * Reason Comments Med Refill Encounter Details Date Type Department Care Team ([facility] st Contact Info) Description 01/31/2023 Refill [facility] MED & PEDS [address] [place] [address] Maria E Hagen MD [address] [place] [address] Social History Tobacco Use Types Packs/Day Years [...] on filedocumented in this encounter Care Teams Water Quality Control Engineer Relationship Specialty Start Date End Date Maria E Hagen MD [address] [place] [address] PCP - General Internal Medicine 10/17/13 documented as of this encounter
--- OUTSIDE RECORDS SUMMARY | 2024-11-01 14:03 | XMS_ITS | Encounter Summary ---
Author Organization [employer] Address [address] [place] [address] [place] [address] Care Team Providers Care Cnc Mill Operator Name Role Phone Maria E Hagen MD Primary Care Provider [phone] Reason for Visit * Reason Comments Med Refill Encounter Details Date Type Department Care Team ([facility] st Contact Info) Description 01/31/2023 Refill [facility] CH[facility] MED & PEDS [address] [place], [place] [phone] Luisa Weems MD [address] [place], [place] [phone] Mixed simple and mucopurulent chronic bronchitis (CMS/HCC) [...] bronchitis documented in this encounter Care Teams Cnc Mill Operator Relationship Specialty Start Date End Date Maria E Hagen MD [address] [place] [address] PCP - General Internal Medicine 10/17/13 documented as of this encounter
[2024-11-01 18:59] LABS: Anion Gap 13 (12-20); Blood Urea Nitrogen 31 mg/dL (9-16); Calcium 9.3 mg/dL (8.4-10.2); Carbon Dioxide 19 mmol/L (22-29); Chloride 111 mmol/L (96-108); Estimated Glomerular Filt Rate 49; Glucose Random 90 mg/dL (60-115); Potassium 4.9 mmol/L (3.3-5.1); Sodium 138 mmol/L (135-145)
== END 2024-11-01 10:37 | disposition home or self-care (01) ==
LOC: HO.HKASLDS 10:36
PROVIDERS: PCP Internal Medicine; Visit Provider Internal Medicine Hypertension Specialist
DX: I12.9 Hypertensive chronic kidney disease with stage 1 through stage 4 chronic kidney disease, or unspecified chronic kidney disease (principal); N18.9 Chronic kidney disease, unspecified; Z98.890 Other specified postprocedural states
CPT/HCPCS: 36415; 80048; 83970; 99212

== ENCOUNTER 2024-11-01 10:36 | Outpatient (AMB) | payer MEDICAID, SELFPAY ==
[2024-11-01 10:38] VITALS: BP 172/92; PULSE 101; O2SAT 94; BMI 29.4
--- NOTE | 2024-11-01 10:38 | HO.NEPHOV ---
Vital Signs 11/01/24 10:38 Height 5 ft 6 in Weight 182 lb BMI 29.4 BP 172/92 H Blood Pressure Location Lt brachial Position Sitting Pulse 101 H Pulse Source Pulse Oximeter Pulse Oximetry (%) 94 Oxygen Delivery Method Room Air Intake Visit Reasons: Rscng 10/04 appt [employer] Required: No Accompanied by: Girlfriend Allergies No Known Allergies Allergy (Verified 11/01/24 10:40) Medication List - Last Reconciled 11/01/24 by Daniel Mathew MD acetaminophen ER 650 mg PO Q8H albuterol 90 mcg/actuation mcg inhalation amlodipine 10 mg PO DAILY fluticasone furoate-vilanterol 100-25 mcg/dose (Breo Ellipta) 1 ea inhalation DAILY gabapentin 100 mg PO TID guaifenesin ER 1,200 mg PO BID ipratropium-albuterol 20-100 mcg/actuation (Combivent Respimat) 1 puff inhalation QID lisinopril 30 mg PO DAILY tiotropium bromide (Spiriva with HandiHaler) 1 cap inhalation DAILY HPI Comments Details: Abisai is a 64-year-old man with a history of hypertension referred for CKD. He has a history of meatal stenosis status post dilatation. Recently was hospitalized for pneumonia and treated with antibiotics. He was found to have chronic kidney disease serum creatinine was around 1.71.8 mg/dL. He has been referred for further evaluation of the same. Renal ultrasonogram and has been ordered but not yet done. Today he has no specific urinary complaints. No dysuria urgency increased frequency. He has low back pain he has been taking ibuprofen 600 mg 2 to 3 times a day on a regular basis for the last 1 month History of significant smoking. Used to smoke 1 pack per day currently cut down to 1 pack per week. He was COPD. [facility] Medical History (Updated 08/16/24 @ 11:33 by Daniel Mathew MD) Stricture of male urethra Sensory hearing loss Essential hypertension Chronic obstructive lung disease Family History Brother Kidney failure Physical Exam Vital Signs: Last Vital Signs Pulse 101 H 11/01/24 10:38 BP 172/92 H 11/01/24 10:38 Pulse Ox 94 11/01/24 10:38 Oxygen Delivery Method Room Air 11/01/24 10:38 BMI result Body Mass Index 29.4 Comfortable Neck supple no JVD. Lungs entry equal no rales. Heart S1-S2 heard no gallop or rub. Abdomen soft nontender. Neuro alert awake oriented. No asterixis. Extremities no edema. Results Reviewed Nephrology Results: Hgb 14.6 g/dl (14.0-18.0) 07/31/24 WBC 12.1 X10*3/uL (4.8-10.8) H 07/31/24 Plt Count 408 X10*3/uL (160-400) H 07/31/24 Sodium 137 mmol/L (135-145) 07/31/24 Potassium 4.8 mmol/L (3.3-5.1) 07/31/24 Chloride 103 mmol/L (96-108) 07/31/24 Carbon Dioxide 23 mmol/L (22-29) 07/31/24 BUN 38 mg/dL (9-16) H 09/26/24 Creatinine 1.73 mg/dL (0.5-1.4) H 09/26/24 Calcium 9.4 mg/dL (8.4-10.2) 07/31/24 Urine Protein Negative mg/dL (Neg-Trace) 09/26/24 Urine Creatinine 49.31 mg/dL 09/26/24 Renal US 09/09/24 Assessment & Plan Assessment & Plan (1) CKD (chronic kidney disease): Code(s): N18.9 - Chronic kidney disease, unspecified Category: Medical Plan Abisai has CKD in a setting of longstanding hypertension. He probably has hypertensive nephrosclerosis. He has been taking NSAIDs regularly therefore we could have a component of MARYAM due to the combination of NSAIDs and JANNIE inhibitors. history of meatal stenosis : No obstructive uropathy based USG. Baseline in the recent urine studies I do not believe he has any active glomerular nephritis or interstitial disease. History of hypertension Initial BP was elevated REpeat was acceptable Urine studies are benign. No hematuria or sediment Micaroalbuminuira + ; Keep on Lisinopril Maintain blood pressure less than 130/80 encouraged him to stay on low-sodium diet Increase p.o. fluid intake. He should avoid using NSAIDs and other nephrotoxic agents. Orders: Orders Basic Metabolic Panel Today N18.9 - Chronic kidney disease, unspecified Coding Level of Care Code Est Pt Level 4 (09764) Diagnoses CKD (chronic kidney disease) N18.9
--- OUTSIDE RECORDS SUMMARY | 2024-11-01 13:05 | XMS_ITS | Encounter Summary ---
Author Organization [employer] Address [address] [facility] 7 [place] [address] Care Team Providers Care Sr. Media Manager Name Role Phone Maria E Hagen MD Primary Care Provider +1- [phone] Reason for Referral * Consultation (Routine) - Closed Specialty Diagnoses / Procedures Referred By Hanna jackson Referred To Contact Nephrology Diagnoses CKD stage 3b, GFR 30-44 ml/min ([facility]/HCC) Maria E Hagen MD [address] [place] [address] Phone: tel: fax: [facility] [address], [address] [place] [address] Phone: tel: fax: Referral ID Status Reason Start Date Expiration Date V isits Requested Visits Authorized [id number] Closed Specialty Services Required 07/31/2024 07/31/2025 1 1 * Imaging (Routine) - Closed Specialty Diagnoses / Procedures Referred By Hanna jackson Referred To Contact Radiology Diagnoses CKD stage 3b, GFR 30-44 ml/min ([facility]/HCC) Procedures US RENAL BI Maria E Hagen MD [address] [place] [address] Phone: tel: fax: [address] Phone: tel: fax: Referral ID Status Reason Start Date Expiration Date Visits Re quested Visits Authorized [id number] Closed 07/31/2024 07/31/2025 1 1 Encounter Details Date Type Department Care Team (Late st Contact Info) Description 07/31/2024 Orders Only [facility] [address] [place] [address] Maria E Hagen MD [address] [place] [address] CKD stage 3b, GFR 30-44 ml/min (CMS/HCC) [...] the past 12 months, has t he [employer], gas, oil or water [employer] threatened to shut off services in your [...] Primary documented in this encounter Care Teams Sr. Media Manager Relationship Specialty Start Date End Date Maria E Hagen MD [address] [place] [id number] PCP - General Internal Medicine 10/17/13 documented as of this encounter
--- OUTSIDE RECORDS SUMMARY | 2024-11-01 13:05 | XMS_ITS | Encounter Summary ---
Author Organization [employer] Address [address] [place] [address] [place] [address] Care Team Providers Care Entry Level Finance Name Role Phone Maria E Hagen MD Primary Care Provider +1- [phone] Reason for Visit * Reason Comments Med Refill Encounter Details Date Type Department Care Team ([facility] st Contact Info) Description 01/02/2023 Refill [facility] [address] [place] [address] Maria E Hgaen MD [address] [place] [address] Social History Tobacco Use Types Packs/Day Years [...] on filedocumented in this encounter Care Teams Entry Level Finance Relationship Specialty Start Date End Date Maria E Hagen MD [address] [place] [address] PCP - General Internal Medicine 10/17/13 documented as of this encounter
--- OUTSIDE RECORDS SUMMARY | 2024-11-01 13:05 | XMS_ITS | Encounter Summary ---
Author Organization [employer] Address [address] [place] [address] [place] [address] Care Team Providers Care Color Developer Name Role Phone Maria E Hagen MD Primary Care Provider +1- [phone] Reason for Visit * Reason Comments Med Refill Encounter Details Date Type Department Care Team ([facility] st Contact Info) Description 01/31/[address] [facility] CHC MED & PEDS 505 [place] [address] Maria E Hagen MD 505 [place] [address] Social History Tobacco Use Types Packs/Day Years [...] on filedocumented in this encounter Care Teams Color Developer Relationship Specialty Start Date End Date Maria E Hagen MD 505 [place] [address] PCP - General Internal Medicine 10/17/13 documented as of this encounter
--- OUTSIDE RECORDS SUMMARY | 2024-11-01 13:05 | XMS_ITS | Encounter Summary ---
Author Organization [employer] Address [address] [place] [address] [place] [address] Care Team Providers Care Molasses Preparer Name Role Phone Maria E Hagen MD Primary Care Provider +1- [phone] Reason for Visit * Reason Comments Med Refill Encounter Details Date Type Department Care Team ([facility] st Contact Info) Description 01/31/2023 Refill [facility] CHC MED & PEDS 505 [place], [place] [phone] Luisa Weems MD 505 [place], [place] [phone] Mixed simple and mucopurulent chronic bronchitis (CMS/HCC) [...] bronchitis documented in this encounter Care Teams Molasses Preparer Relationship Specialty Start Date End Date Maria E Hagen MD 505 [place] [address] PCP - General Internal Medicine 10/17/13 documented as of this encounter
--- OUTSIDE RECORDS SUMMARY | 2024-11-01 13:05 | XMS_ITS | Clinical Summary ---
Author Organization [employer] Address [address] [facility] 7t [place] [address] Care Team Providers Care Science And Operations Officer Name Role Phone Maria E Hagen MD Primary Care Provider +1- [phone] Allergies No known active allergies Medications acetaminophen (Tylenol 8 Hour) 650 MG ER tablet Take 1 tablet by mouth every 8 (eight) hours. 07/21/20 18 Active Fluticasone Furoate-Vilanter ol (Breo Ellipta) 100-25 MCG/ACT aerosol powder Inhale 1 puff at bed time. 12/09/19 22 Active ipratropium-albu terol (Combivent Respimat) 20-100 MCG/ACT inhalerIndicatio ns:Mixed simple and mucopurulent chronic bronchitis (CMS/HCC) Inhale 1 puff in the morning, at noon, in the evening, and at bedtime. 4 g 05/03/20 24 Active guaiFENesin (Mucinex) 600 MG 12 hr tabletIndication s:Mixed simple and mucopurulent chronic bronchitis (CMS/HCC) Take 2 tablets (1,200 mg) by mouth 2 times daily. Do not crush, chew, or split. 120 tablet 11 05/03/20 24 025 Active gabapentin (Neurontin) 100 MG capsule Take 100 mg by mouth 3 times daily. 07/18/20 24 Active cetirizine (ZyrTEC) 10 MG tabletIndication s:Seasonal allergies TAKE 1 TABLET BY MOUTH IN THE MORNING 90 tablet 1 08/16/20 24 Active lisinopril 30 MG tabletIndication s:Essential hypertension Take 1 tablet (30 mg) by mouth Once per day. 90 tablet 3 09/26/19 25 Active albuterol (Ventolin HFA) 108 (90 Base) MCG/ACT inhalerIndicatio ns:Mixed simple and mucopurulent chronic bronchitis (CMS/HCC) Inhale 2 puffs every 6 (six) hours if needed for wheezing. 18 g 5 09/26/19 25 Active Fluticasone-Umec lidin-Vilant (Trelegy Ellipta) 100-62.5-25 MCG/ACT aerosol powderIndication s:Mixed simple and mucopurulent chronic bronchitis (CMS/HCC) Inhale 1 puff Once per day. 60 each 1 09/27/19 25 Active amLODIPine (Norvasc) 10 MG tabletIndication s:Essential hypertension TAKE 1 TABLET(10 MG) BY MOUTH IN THE MORNING 90 tablet 3 10/17/19 25 Active amLODIPine (Norvasc) 10 MG tabletIndication s:Essential hypertension Take 1 tablet (10 mg) by mouth Once per day. 90 tablet 3 06/20/20 24 025 Discontinued Active Problems Problem Noted Date Diagnosed Date CKD stage 3b, GFR 30-44 ml/min 07/31/2024 Stricture of male urethra 03/01/2023 Chronic obstructive lung disease 06/06/2014 Assessment & Plan (09/26/2024 4:40 PM EST): Lung sound diminished in all quadrant Tripod sitting Albuterol refilled Start on [facility] Patient education on smoking and COPD, [...] Encounters Date Type Department Care Team Description 10/10/2024 Refill [facility] MED & PEDS [address] [place] [address] Maria E Hagen MD Essential hypertension 09/26/2024 3:15 PM EST Office Visit [facility] MED & PEDS [address] [place] [address] Maria E Hagen MD CKD stage 3b, GFR 30-44 ml/min (CMS/HCC) (Primary Dx); Essential hypertension; Mixed simple and mucopurulent chronic bronchitis (CMS/HCC) 09/26/2024 Travel 09/08/2024 Orders Only [facility] External Provider, [facility] 08/16/2024 Refill [facility] MED & PEDS [address] [place] [address] Maria E Hagen MD Seasonal allergies 08/09/2024 Telephone [facility] [address] [place], [place] [phone] Maria E Hagen MD 08/01/2024 Telephone [facility] MED & PEDS [address] [place] [address] Nancy Villanueva, YOHANNES Results from Last 3 Months Immunizations Name Administration [...] Screening 1960 Lipid Panel 1960 Sigmoidoscopy 1962 Hepatitis C Screening 1980 Pneumococcal Vaccine: 50+ Years (1 of 2 - PCV) 1981 Lung Cancer Screening 2012 Zoster Vaccines (1 of 2) 2012 RSV Patients and Patients Aged 60 years or older (1 - Risk 60-74 years 1-dose series) 2022 COVID-19 Vaccine (1 - 2023- season) 2025 Postponed from 05/07/2024 (Patient Refused) [...] Procedure Name Priority Date/Time Associated Diagnosis Comments URINALYSIS, COMPLETE Routine 09/26/2024 4:20 PM EST CKD stage 3b, GFR 30-44 ml/min ([facility]) ALBUMIN, RANDOM URINE W/CREATININE Routine 09/26/2024 4:20 PM EST CKD stage 3b, GFR 30-44 ml/min (CMS/HCC) CREATININE, SERUM Routine 09/26/2024 4:1 3 PM EST CKD stage 3b, GFR 30-44 ml/min (CMS/HCC) UREA NITROGEN (BUN) Routine 09/26/2024 4 :13 PM EST CKD stage 3b, GFR 30-44 ml/min (CMS/HCC) US RENAL BI Routine 09/09/2024 8:00 AM EST from Last 3 Months Results * (ABNORMAL) Albumin, Random Urine W/Creatinine (09/26/2024 4:20 PM EST) Creatinine, Urine 49.31 mg/dL [facility] Microalbumin Urine 53.0 mg/L [facility] Microalbum Creatinine Ratio Ur 107.4(H) <30 ug/mg cr [facility] Comment:Albumin/Creatinine R atio Reference Ranges: Normal: < 30 ug/mg creatinine Microalbuminuria: 30 - 300 ug/mg creatinineClinical Albuminuria: > 300 ug/mg creatinine Urine (Urine, Random) 09/26/2024 4:20 PM EST 09/26/2024 5:30 PM EST us Maria E Hagen MD LAB URINE ORDERABLES Final Result [facility] [address] [place] [phone] * Urinalysis Complete (09/26/2024 4:20 PM EST) Color Urine Yellow [facility] Appearance Urine Clear [facility] PH 5.5 5.0 - 9.0 [facility] Glucose Urine UA Negative Negative mg/dL [facility] Urine Blood Negative Negative [facility] Specific [place] - Urine 1.010 1.005 - 1.025 [facility] Urine Protein Negative Neg-Trace mg/dL [facility] Urine Ketones Negative Negative mg/dL [facility] Nitrite Urine Negative Negative [facility] Leukocyte Esterase Urine Negative Negative [facility] RBC Urine 0-2 0 - 2 /HPF [facility] Urine WBC 0-5 0 - 5 /HPF [facility] Urine Squamous Epithelial Cell 0-2 0 - 2 /HPF [facility] Urine Bacteria None Seen None Seen [facility] Hyaline Casts, Urine 0-2 0 - 2 /LPF [facility] Urine (Urine, Random) 09/26/2024 4:20 PM EST 09/26/2024 5:30 PM EST us Maria E Hagen MD LAB URINE ORDERABLES Final Result Performing Organization Address [facility]/ZIP Co de Phone Number [facility] [address] [place] [phone] * (ABNORMAL) Creatinine, Serum (09/26/2024 4:13 PM EST) Creatinine, Serum 1.73(H) 0.5 - 1.4 mg/dL [facility] Estimated Glomerular Filt Rate 40 [facility] Comment:Chronic Kidney Disea se: Estimated GFR < 60 mL/min/[id number] Kidney Disease: Estimated GFR < 15 mL/min/1.73m2 Blood Venous blood specimen / Unknown 09/26/2024 4:13 PM EST 09/26/2024 5:31 PM EST us Maria E Hagen MD LAB BLOOD ORDERABLES Final Result Performing Organization Address City/[facility]/ZIP Co de Phone Number [facility] [address] [place] [phone] * (ABNORMAL) BUN (Blood Urea Nitrogen) (09/26/2024 4:13 PM EST) Urea Nitrogen (BUN) 38(H) 9 - 16 mg/dL [facility] Blood Venous blood specimen / Unknown 09/26/2024 4:13 PM EST 09/26/2024 5:31 PM EST us Maria E Hagen MD LAB BLOOD ORDERABLES Final Result [facility] [address] [facility] [place] [address] [phone] * US RENAL BI (09/09/2024 8:00 AM EST) Anatomical Region Laterality Modality Abdomen Ultrasound 09/09/2024 8:00 AM EST Narrative 09/09/2024 8:02 AM EST ? [facility] ?[address] ?[place] [address] ? Ultrasound Report ? Signed ? Patient: [place],Abisai ?MR#: [id number] ?? [id number] ? : 1960 ?Acct:[id number] ? Age/Sex: 64 / M ?ADM Date: 09/08/24 ? Loc: HO.US ? Attending Dr: Daniel Mathew MD ? Ordering Physician: Daniel Mathew MD ?? Date of Service: 09/08/24 ?? Procedure(s): US renal BI ?? Accession Number(s): [id number] ? cc: Daniel Mathew MD; Maria E [...] DD/ 0800 ? TD/TT: 09/09/24 0800 ? Barge Engineer: ? Procedure Note Donjosephter, Image - 09/09/2024 [place] [address] Ultrasound Report Signed Patient: Terrell Ryan#: [id number] 394 : 2Acct:[id number] Age/Sex: 64 / MADM Date: 09/08/24 Loc: HO.US Attending Dr: Daniel Mathew MD Ordering Physician: Daniel Mathew MD Date of Service: 09/08/24 Procedure(s): US renal BI Accession Number(s): [id number] cc: Daniel Mathew MD; Maria E Hagen [...] in OV> 09/09/24801 DD/ 9 TD/TT: 09/09/24799 Barge Engineer: [facility] External [facility] Final Result from Last 3 Months Insurance C3 Care Teams Science And Operations Officer Relationship Specialty Start Date End Date Maria E Hagen MD [address] [place] [phone] PCP - General Internal Medicine 10/17/13
--- OUTSIDE RECORDS SUMMARY | 2024-11-01 13:05 | XMS_ITS | Encounter Summary ---
Author Organization [employer] Address [address] [place] [address] 7 [place] [address] Care Team Providers Care Wine Steward Name Role Phone Maria E Hagen MD Primary Care Provider +1- [phone] Encounter Details Date Type Department Care Team ([facility] st Contact Info) Description 01/04/2023 Abstract [facility]EDS [address] [place] [address] Maricruz Interiano LPN Social History Tobacco Use [...] on filedocumented in this encounter Care Teams Wine Steward Relationship Specialty Start Date End Date Maria E Hagen MD 505 [place] [address] PCP - General Internal Medicine 10/17/13 documented as of this encounter
--- OUTSIDE RECORDS SUMMARY | 2024-11-01 13:05 | XMS_ITS | Encounter Summary ---
Author Organization [employer] Address [address] [facility] 7 [place] [address] Care Team Providers Care Woodwork Salvage Inspector Name Role Phone Maria E Hagen MD Primary Care Provider +1- [phone] Reason for Visit * Reason Comments Med Refill Encounter Details Date Type Department Care Team ([facility] st Contact Info) Description 10/10/2024 Refill C [facility] MED & PEDS [address] [place], [place] [phone] Maria E Hagen MD 505 [place] [address] Essential hypertension Social History Tobacco Use Types Packs/Day Years [...] as of this encounter Visit Diagnoses Diagnosis Essential hypertension Unspecified essential hypertension documented in this encounter Additional Health Concerns Assessment Noted Time PHQ-9 Depression Total Score: 1 09/26/19 25 4:08 PM EST documented as of this encounter Care Teams Woodwork Salvage Inspector Relationship Specialty Start Date End Date Maria E Hagen MD [address] [place] [address] PCP - General Internal Medicine 10/17/13 documented as of this encounter
== END 2024-11-01 11:02 | disposition home or self-care (01) ==
PROVIDERS: PCP Internal Medicine; Visit Provider Internal Medicine Hypertension Specialist
DX: N18.9 Chronic kidney disease, unspecified (principal)
CPT/HCPCS: 99214

== ENCOUNTER 2025-02-07 10:24 | Outpatient (AMB) | payer MEDICAID, SELFPAY ==
[2025-02-07 10:25] VITALS: BP 158/82; PULSE 88; O2SAT 95; BMI 29.5
--- NOTE | 2025-02-07 10:25 | HO.NEPHOV_ITS ---
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: No Accompanied by: Spouse Allergies No Known Allergies Allergy (Verified 02/07/25 10:27) Medication List - Last Reconciled 02/07/25 by Daniel Mathew MD acetaminophen ER 650 mg PO Q8H albuterol 90 mcg/actuation mcg inhalation amlodipine 10 mg PO DAILY fluticasone furoate-vilanterol 100-25 mcg/dose (Breo Ellipta) 1 ea inhalation DAILY gabapentin 100 mg PO TID guaifenesin ER 1,200 mg PO BID ipratropium-albuterol 20-100 mcg/actuation (Combivent Respimat) 1 puff inhalation QID lisinopril 30 mg PO DAILY tiotropium bromide (Spiriva with HandiHaler) 1 cap inhalation DAILY HPI Comments Details: Abisai is a 64-year-old man with a history of hypertension referred for CKD. He has a history of meatal stenosis status post dilatation. Recently was hospitalized for pneumonia and treated with antibiotics. He was found to have chronic kidney disease serum creatinine was around 1.71.8 mg/dL. He has been referred for further evaluation of the same. Renal ultrasonogram and has been ordered but not yet done. Today he has no specific urinary complaints. No dysuria urgency increased frequency. He has low back pain he has been taking ibuprofen 600 mg 2 to 3 times a day on a regular basis for the last 1 month History of significant smoking. Used to smoke 1 pack per day currently cut down to 1 pack per week. He was COPD. 02/07/25 64-year-old male presenting with concerns of a recurring urinary tract infection and persistent right upper quadrant pain. He reports episodes of cloudy urine occurring intermittently over the past few weeks, with no accompanying dysuria. Additionally, he has noticed a sore spot under his right rib, which has persisted for a couple of months, initially thought to be from a coughing episode. Although he experienced mild respiratory symptoms suggestive of a cold, these were short-lived and managed with [id number] medication. He reports reduced alcohol consumption following side pain, maintaining moderate intake for the past week. [facility] Medical History (Updated 08/16/24 @ 11:33 by Daniel Mathew MD) Stricture of male urethra Sensory hearing loss Essential hypertension Chronic obstructive lung disease Family History Brother Kidney failure Physical Exam Vital Signs: Last Vital Signs Pulse 88 02/07/25 10:25 BP 158/82 H 02/07/25 10:25 Pulse Ox 95 02/07/25 10:25 Oxygen Delivery Method Room Air 02/07/25 10:25 BMI result Body Mass Index 29.5 Comfortable Neck supple no JVD. Lungs entry equal no rales. Heart S1-S2 heard no gallop or rub. Abdomen soft nontender. Neuro alert awake oriented. No asterixis. Extremities no edema. Results Reviewed Nephrology Results: Hgb 14.6 g/dl (14.0-18.0) 07/31/24 WBC 12.1 X10*3/uL (4.8-10.8) H 07/31/24 Plt Count 408 X10*3/uL (160-400) H 07/31/24 Sodium 138 mmol/L (135-145) 11/01/24 Potassium 4.9 mmol/L (3.3-5.1) 11/01/24 Chloride 111 mmol/L (96-108) H 11/01/24 Carbon Dioxide 19 mmol/L (22-29) L 11/01/24 BUN 31 mg/dL (9-16) H 11/01/24 Creatinine 1.46 mg/dL (0.5-1.4) H 11/01/24 Calcium 9.3 mg/dL (8.4-10.2) 11/01/24 PTH Intact 54.0 pg/mL (8.7-77.1) 11/01/24 Urine Protein Negative mg/dL (Neg-Trace) 09/26/24 Urine Creatinine 49.31 mg/dL 09/26/24 Renal US 09/09/24 Assessment & Plan Assessment & Plan (1) CKD (chronic kidney disease): Code(s): N18.9 - Chronic kidney disease, unspecified Category: Medical Plan Abisai has CKD in a setting of longstanding hypertension. He probably has hypertensive nephrosclerosis. He has been taking NSAIDs regularly therefore we could have a component of MARYAM due to the combination of NSAIDs and JANNIE inhibitors. history of meatal stenosis : No obstructive uropathy based USG. Baseline in the recent urine studies I do not believe he has any active glomerular nephritis or interstitial disease. History of hypertension Urine studies are benign. No hematuria or sediment Micaroalbuminuira + ; Keep on Lisinopril Maintain blood pressure less than 130/80 encouraged him to stay on low-sodium diet Increase p.o. fluid intake. He should avoid using NSAIDs and other nephrotoxic agents. Possible UTI- check urine c/s Orders: Orders Basic Metabolic Panel Today N18.9 - Chronic kidney disease, unspecified Complete Blood Count Auto Diff Today N18.9 - Chronic kidney disease, unspecified Urine Culture Today N18.9 - Chronic kidney disease, unspecified UA and rflx microscopic Today N18.9 - Chronic kidney disease, unspecified Coding Level of Care Code Est Pt Level 4 (96661) Diagnoses CKD (chronic kidney disease) N18.9
--- OUTSIDE RECORDS SUMMARY | 2025-02-07 11:03 | XMS_ITS | Clinical Summary ---
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 8 Active Fluticasone Furoate-Vilantero l (Breo Ellipta) 100-25 MCG/ACT aerosol powder Inhale 1 puff at bed time. 2 Active guaiFENesin (Mucinex) 600 MG 12 hr tabletIndications :Mixed simple and mucopurulent chronic bronchitis (CMS/HCC) Take 2 tablets (1,200 mg) by mouth 2 times daily. Do not crush, chew, or split. 120 tablet 11 4 05/03/20 25 Active gabapentin (Neurontin) 100 MG capsule Take 100 mg by mouth 3 times daily. 4 Active cetirizine (ZyrTEC) 10 MG tabletIndications :Seasonal allergies TAKE 1 TABLET BY MOUTH IN THE MORNING 90 tablet 1 4 Active lisinopril 30 MG tabletIndications :Essential hypertension Take 1 tablet (30 mg) by mouth Once per day. 90 tablet 3 5 Active albuterol (Ventolin HFA) 108 (90 Base) MCG/ACT inhalerIndication s:Mixed simple and mucopurulent chronic bronchitis (CMS/HCC) Inhale 2 puffs every 6 (six) hours if needed for wheezing. 18 g 5 5 Active Fluticasone-Umecl idin-Vilant (Trelegy Ellipta) 100-62.5-25 MCG/ACT aerosol powderIndications :Mixed simple and mucopurulent chronic bronchitis (CMS/HCC) Inhale 1 puff Once per day. 60 each 1 5 Active amLODIPine (Norvasc) 10 MG tabletIndications :Essential hypertension TAKE 1 TABLET(10 MG) BY MOUTH IN THE MORNING 90 tablet 3 5 Active Combivent Respimat 20-100 MCG/ACT inhalerIndication s:Mixed simple and mucopurulent chronic bronchitis (CMS/HCC) INHALE 1 PUFF BY MOUTH FOUR TIMES DAILY 4 g 11 5 Active Active Problems Problem Noted Date Diagnosed Date CKD stage 3b, GFR 30-44 ml/min 07/31/2024 Stricture of male urethra 03/01/2023 Chronic obstructive lung disease 06/06/2014 Assessment & Plan (09/26/2024 4:40 PM EST): Lung sound diminished in all quadrant Tripod sitting Albuterol refilled Start on [facility] Patient education on smoking and COPD, [...] Encounters Date Type Department Care Team Description 12/20/[address] [facility] MEDICINE [address] [place] [address] Maria E Hagen MD Nurse Triage 12/09/[address] [facility] CHC MED & PEDS [address] [place], [place] [phone] Maria E Hagen MD Mixed simple and mucopurulent chronic bronchitis (CMS/HCC) 11/17/2024 Population Health Risk Score [facility] () Department [address] [place] [id number] Provider, Population Health Generic from Last 3 Months Immunizations Immunization Administration Dates Next Due Influenza injectable quadriv [...] Screening 1960 Lipid Panel 1962 Sigmoidoscopy 1962 Disability Screening 1962 Hepatitis C Screening 1980 Pneumococcal Vaccine: 50+ Years (1 of 2 - PCV) 1981 Lung Cancer Screening 2012 Zoster Vaccines (1 of 2) 2012 RSV Patients and Patients Aged 60 years or older (1 - Risk 60-74 years 1-dose series) 2022 COVID-19 Vaccine ( season) 2025 Postponed from 05/07/2024 (Patient Refused) SDOH Screening 07/20/2025 07/20/2024 Tobacco Screening 07/31/2025 07/31/2024 Alcohol/Substance Use Screening 09/26/2025 09/26/2024 Depression Screening 09/26/2025 09/26/2024, 09/26/19 25 DTaP/Tdap/Td Vaccines (2 - Td or Tdap) [...] patient's age to complete this topic Meningococcal B Vaccine Aged Out No l onger eligible based on patient's age to complete this topic Meningococcal Vaccine Aged Out No flor josue eligible based on patient's age to complete this topic RSV under 20 months Aged Out No longe r eligible based on patient's age to complete this topic Rotavirus Vaccines Aged Out No longer eligible based on patient's age to complete this topic Insurance [employer] Care Teams 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
== END 2025-02-07 10:39 | disposition home or self-care (01) ==
LOC: HO.HKAS 10:25
PROVIDERS: PCP Internal Medicine; Visit Provider Internal Medicine Hypertension Specialist
DX: N18.9 Chronic kidney disease, unspecified (principal)
CPT/HCPCS: 99214

== ENCOUNTER → 2025-02-07 10:24 | Outpatient (BNVA) | payer MEDICAID, SELFPAY | PROVIDERS: PCP Internal Medicine; Visit Provider Internal Medicine Hypertension Specialist | DX: N18.9 Chronic kidney disease, unspecified (principal) | CPT/HCPCS: 36415; 80048; 81001; 82570; 84156; 85025; 87086; 99212 ==

== ENCOUNTER 2025-02-07 10:43 | Outpatient (REF) | payer MEDICAID, SELFPAY ==
[2025-02-07 17:57] LABS: MANUAL DIFF FLAG NO
[2025-02-07 18:09] LABS: Basophils Absolute Auto 0.1 X10*3/uL (0.0-0.2); Basophils Percent Auto 0.9 % (0-2); Eosinophils Absolute Auto 0.5 X10*3/uL (0.0-0.4); Eosinophils Percent Auto 4.6 % (0-4); Hematocrit 46.3 % (42.0-52.0); Hemoglobin 15.3 g/dl (14.0-18.0); Imm Gran Abs Auto 0.03 X10*3/uL (0.00-0.03); Imm Gran Pct Auto 0.3 % (0.0-0.4); Lymphocytes Absolute Auto 1.6 X10*3/uL (1.2-4.9); Lymphocytes Percent Auto 16.1 % (20-40); Mean Corpuscular Hemoglobin 30.2 pg (27.0-33.0); Mean Corpuscular Volume 91.5 fL (80.0-98.0); Mean Platelet Volume 10.4 fL (9.4-12.4); Monocytes Absolute Auto 0.8 X10*3/uL (0.1-1.2); Monocytes Percent Auto 7.8 % (2-11); Neutrophils Absolute Auto 6.8 x10*3/uL (2.0-8.3); Neutrophils Percent Auto 70.3 % (45-73); Platelet Count 434 X10*3/uL (160-400); Red Blood Count 5.06 X10*6/uL (4.60-5.80); Red Cell Distribution Width 14.2 % (11.0-16.0); White Blood Count 9.7 X10*3/uL (4.8-10.8)
[2025-02-07 18:23] LABS: Anion Gap 15 (12-20); Blood Urea Nitrogen 37 mg/dL (9-16); Carbon Dioxide 23 mmol/L (22-29); Chloride 107 mmol/L (96-108); Estimated Glomerular Filt Rate 43; Glucose Random 98 mg/dL (60-115); Potassium 4.8 mmol/L (3.3-5.1); Sodium 140 mmol/L (135-145)
[2025-02-07 18:26] LABS: Appearance Urine Clear; Color Urine Yellow; Glucose Urine UA Negative (Negative); Leukocyte Esterase Urine Trace (Negative); Nitrite Urine Negative (Negative); PH 5.5 (5.0-9.0); Specific Gravity - Urine 1.015 (1.005-1.025); UMIC TRIGGER UA YES; Urine Blood Negative (Negative); Urine Ketones Negative (Negative); Urine Protein Negative (Neg-Trace)
[2025-02-07 18:32] LABS: Bacteria Urine None Seen (None Seen); Hyaline Casts Urine 0-2 /LPF (0-2); RBC Urine 0-2 /HPF (0-2); Squamous Epithelial Cell Urine 0-2 /HPF (0-2)
[2025-02-07 18:40] LABS: Creatinine Urine 79.58 mg/dL; Total Protein Urine Random 14 mg/dL (<12)
== END 2025-02-07 10:44 | disposition home or self-care (01) ==
LOC: HO.HKASLDS 10:43
PROVIDERS: Visit Provider Internal Medicine Hypertension Specialist
DX: Z13.89 Encounter for screening for other disorder (principal)
CPT/HCPCS: 36415; 80048; 81001; 82570; 84156; 85025; 87086